=== PATIENT | female | born 1980 | race Caucasian/White ===

== ENCOUNTER 2022-08-03 19:12 | Emergency (ER) | payer BC ==
[~2022-08-03] VITALS: Ht 170.2 cm; Wt 104.3 kg
[2022-08-03] MEDS ORDERED: PROP40TA7 PO (19:56)
--- NOTE | 2022-08-03 20:01 | NUR ---
Dr. Myers evaluating patient at bedside. MSE in progress.
--- NOTE | 2022-08-03 20:03 | NUR ---
Urine specimen and COVID test sent to lab.
[2022-08-03 20:07] LABS: *BILIRUBIN,URIN NEGATIVE (NEGATIVE); *CLARITY,URINE CLEAR (CLEAR); *COLOR,URINE YELLOW (YELLOW); *KETONES,URINE 3+ (NEGATIVE); *UROBILINOGEN,URINE 0.2 E.U./dl (NORMAL); LEUKOCYTE ESTERASE ,URINE NEGATIVE (NEGATIVE); NITRITE, URINE NEGATIVE (NEGATIVE); UGLUCOSE NEGATIVE (NEGATIVE)
[2022-08-03 20:09] LABS: *BLOOD, URINE TRACE (NEGATIVE)
[2022-08-03 20:13] LABS: *AMPHETAMINE, URINE NEGATIVE (NEGATIVE); *CANNABINOID, URINE POSITIVE (NEGATIVE); *COCCAINE, URINE NEGATIVE (NEGATIVE); *OPIATE, URINE NEGATIVE (NEGATIVE); *PHENCYCLIDINE SCREEN,URINE NEGATIVE (NEGATIVE)
[2022-08-03 20:16] LABS: HEMATOCRIT 42.2 % (31.2-41.9); MEAN CORPUSCULAR HEMOGLOBIN 31.1 uug (24.7-32.8); MEAN CORPUSCULAR VOLUME 91.7 fL (75.5-95.3); PLATELET COUNT (AUTO) 350 K/uL (179-408)
[2022-08-03 20:24] LABS: *URINE HCG, QUAL NEG (NEGATIVE)
[2022-08-03 20:28] LABS: CARBON DIOXIDE 24 mmol/L (21-32); CHLORIDE 102 mmol/L (98-107); CREATININE 0.9 mg/dL (0.6-1.3); GLUCOSE 84 mg/dL (74-106); POTASSIUM 3.8 mmol/L (3.5-5.1); UREA NITROGEN, BLOOD 15 mg/dL (7-18)
[2022-08-03 20:34] LABS: ALANINE AMINOTRANSFERASE 22 U/L (14-59); ALKALINE PHOSPHATASE 111 U/L (50-136); ASPARTATE AMINOTRANSFERASE 16 U/L (15-37); BILIRUBIN,DIRECT 0.1 mg/dL (0.0-0.2); BILIRUBIN,TOTAL 0.3 mg/dL (0.2-1.0); TOTAL PROTEIN, SERUM 7.8 g/dL (6.4-8.2)
[2022-08-03 20:39] LABS: ACETAMINOPHEN < 2.0 ug/mL (10-30); ETHANOL < 3 MG/DL (0-0)
--- NOTE | 2022-08-03 20:55 | NUR ---
Per Dr. Myers, patient okay to go outside to smoke a cigarette.
--- NOTE | 2022-08-03 20:58 | NUR ---
Faxed Clinical Data to [facility] .
[2022-08-03] MEDS ORDERED: PROPRANOLOL HCL 10 MG TABLET PO ONE (21:15)
[2022-08-03 21:37] LABS: BACTERIA,URINE MANY /HPF (NONE SEEN); SQUAMOUS EPITHELIAL CELL,UR FEW /HPF (NONE SEEN); WBC,URINE 0-3 /HPF (0-3)
[2022-08-03] MEDS ORDERED: PROPRANOLOL HCL 10 MG TABLET ONE (21:37)
--- NOTE | 2022-08-03 22:25 | NUR ---
Received call back from [facility], with transfer information. Pt going to [facility], Accepted by Dr. Talavera, room 110A, number to report .
--- NOTE | 2022-08-03 22:39 | NUR ---
Per Dr. Louis hodges for patient to go out for a cigarette smoke outside.
--- NOTE | 2022-08-03 23:01 | NUR ---
Report given to John MELCHOR at [facility].
--- NOTE | 2022-08-03 23:08 | NUR ---
Patient signed consent for transfer.
--- NOTE | 2022-08-03 23:11 | NUR ---
Called [facility] ambulance for transfer. ETA seed cone picker time 70-90 minutes.
--- NOTE | 2022-08-04 02:00 | NUR ---
Patient picked up by [facility] ambulance with personal belongings. Patient in stable condition no signs of distress.
[2022-08-04 02:07] VITALS: BP 117/79
== END 2022-08-04 02:00 ==
LOC: ER 19:30
DX: F32.A Depression, unspecified (principal); R45.851 Suicidal ideations; Z91.52 Personal history of nonsuicidal self-harm; F17.210 Nicotine dependence, cigarettes, uncomplicated; Z88.5 Allergy status to narcotic agent; Z20.822 Contact with and (suspected) exposure to COVID-19; G43.909 Migraine, unspecified, not intractable, without status migrainosus; Z81.3 Family history of other psychoactive substance abuse and dependence
CPT/HCPCS: 36415; 84703; 85025; A4663; G0480